=== PATIENT | female | born 1930 | race Hispanic/Latino ===

== ENCOUNTER 2017-12-31 15:09 | Emergency (ER) | payer OTHER ==
[2017-12-31] MEDS ORDERED: ACETAMINOPHEN-CODEINE 300/30MG TAB ONE (15:22)
== END 2017-12-31 16:32 | disposition home or self-care (01) ==
LOC: EDH 15:09
DX: S82.891A Other fracture of right lower leg, initial encounter for closed fracture (principal); E11.9 Type 2 diabetes mellitus without complications; E78.5 Hyperlipidemia, unspecified; I10 Essential (primary) hypertension; W18.39XA Other fall on same level, initial encounter; Y93.01 Activity, walking, marching and hiking; Y92.89 Other specified places as the place of occurrence of the external cause; Y99.8 Other external cause status
CPT/HCPCS: 29515; 73562; 73610

== ENCOUNTER 2018-01-15 11:30 | Observation (INO) | payer OTHER ==
[~2018-01-15] VITALS: Ht 152.4 cm; Wt 56.7 kg
[2018-01-15 15:57] LABS: BASOPHILS % (AUTO) 0.8 % (0.0-5.0); EOSINOPHILS % (AUTO) 1.8 % (0.0-8.0); HEMATOCRIT 32.2 % (36-48); LYMPHOCYTES % (AUTO) 16.2 % (21.0-51.0); MEAN CORPUSCULAR HEMOGLOBIN 29.7 pg (27.0-33.0); MEAN CORPUSCULAR HGB CONC 33.6 g/dL (32.0-36.0); MEAN CORPUSCULAR VOLUME 88.3 fL (79-99); MONOCYTES % (AUTO) 6.7 % (3.0-13.0); NEUTROPHILS % (AUTO) 74.5 % (40.0-77.0); PLATELET COUNT (AUTO) 404 K/uL (130-400); RED BLOOD CELL COUNT(AUTO) 3.65 MIL/uL (4.00-5.50); RED CELL DISTRIBUTION WIDTH 14.6 % (11.0-15.5)
[2018-01-15 16:02] VITALS: BP 109/58
[2018-01-15 16:04] LABS: CREATININE 1.8 mg/dL (0.5-1.5); POTASSIUM 5.4 mmol/L (3.5-5.1)
[2018-01-15] MEDS ORDERED: ACET1TAB12 PO (16:38)
[2018-01-15] MEDS ORDERED: GLIP2.5T2 PO (16:38)
[2018-01-15] MEDS ORDERED: METO50TA18 PO (16:38)
[2018-01-15] MEDS ORDERED: ASPI-555 PO (16:38)
[2018-01-15] MEDS ORDERED: AMLO5TAB2 PO (16:38)
[2018-01-15] MEDS ORDERED: LOSA1TAB54 PO (16:38)
[2018-01-15] MEDS ORDERED: TIMO.5OS OD (16:38)
[2018-01-16] VITALS (23 sets, daily range): BP systolic 94–119; BP diastolic 40–54
[2018-01-16] MEDS: CEFAZOLIN SODIUM 1 GM VIAL IVP SCH ×4 (06:00→23:31)
[2018-01-16] MEDS ORDERED: LACTATED RINGERS 1000ML 0 ML IV ONE (07:39)
[2018-01-16] MEDS ORDERED: SODIUM CHLORIDE 0.9% 1000ML 1,000 ML IV ONE (07:40)
[2018-01-16] MEDS ORDERED: GLYCOPYRROLATE 0.2 MG/ML 5 ML VIAL ONE (08:20)
[2018-01-16] MEDS ORDERED: FENTANYL CITRATE PF 50 MCG/1 ML 2ML VIAL ONE (08:20)
[2018-01-16] MEDS ORDERED: DEXAMETHASONE SOD PHOSPHATE 10MG/ML 1ML VIAL ONE (08:20)
[2018-01-16] MEDS ORDERED: PROPOFOL 10 MG/ML 20ML VIAL IV ONE (08:20)
[2018-01-16] MEDS ORDERED: LIDOCAINE PF 2% 5ML ABBOJECT ONE (08:20)
[2018-01-16] MEDS ORDERED: MIDAZOLAM HCL 1 MG/ML 2ML VIAL ONE (08:21)
[2018-01-16] MEDS ORDERED: CEFAZOLIN SODIUM 1 GM VIAL ONE ×2 (08:50→23:29)
[2018-01-16] MEDS ORDERED: HYDROCODONE/ACETAMINOPHEN 5/325 MG TAB PO PRN ×2 (09:15)
[2018-01-16] MEDS ORDERED: FERROUS FUMARATE 324 MG TABLET PO PRN (09:15)
[2018-01-16] MEDS ORDERED: KETOROLAC TROMETHAMINE 15MG/ML IV PRN (09:15)
[2018-01-16] MEDS ORDERED: DIPHENHYDRAMINE HCL 25 MG CAPSULE PO PRN (09:15)
[2018-01-16] MEDS: SODIUM CHLORIDE 0.9% 1000ML 1,000 ML IV SCH ×2 (11:06→19:48)
[2018-01-16] MEDS: PSYLLIUM SEED 1 EACH PACKET PO SCH (12:29)
[2018-01-16] MEDS: ACETAMINOPHEN-CODEINE 300/30MG TAB PO SCH ×3 (12:30→23:32)
[2018-01-16] MEDS ORDERED: CEFAZOLIN 2GM / 50 ML 50 ML IV SCH (14:15)
[2018-01-16] MEDS: WATER FOR INJECTION,STERILE 20 ML VIAL IJ SCH ×2 (17:21→22:15)
[2018-01-16] MEDS: ASPIRIN 325 MG TABLET PO SCH (19:48)
[2018-01-17] MEDS: SODIUM CHLORIDE 0.9% 1000ML 1,000 ML IV SCH (05:11)
[2018-01-17] MEDS: WATER FOR INJECTION,STERILE 20 ML VIAL IJ SCH ×2 (05:33→12:26)
[2018-01-17 05:48] VITALS: BP 135/60
[2018-01-17] MEDS: ACETAMINOPHEN-CODEINE 300/30MG TAB PO SCH ×3 (06:00→19:33)
[2018-01-17 08:02] VITALS: BP 126/58
[2018-01-17] MEDS ORDERED: GLIPIZIDE XL 2.5MG TAB PO SCH (09:00)
[2018-01-17] MEDS ORDERED: POLYETHYLENE GLYCOL 3350 17 GM POWD.PACK PO SCH (09:00)
[2018-01-17] MEDS ORDERED: METOPROLOL TARTRATE 50 MG TAB PO SCH (09:00)
[2018-01-17] MEDS ORDERED: TIMOLOL MALEATE 0.5% 5 ML BOTTLE OD SCH (09:00)
[2018-01-17] MEDS ORDERED: ASPIRIN 81 MG EC TAB PO SCH (09:00)
[2018-01-17] MEDS ORDERED: AMLODIPINE BESYLATE 5 MG TAB PO SCH (09:00)
[2018-01-17] MEDS ORDERED: LOSARTAN/HYDROCHLOROTHIAZIDE 50-12.5MG TABLET PO SCH (09:00)
[2018-01-17] MEDS ORDERED: FAMOTIDINE 20MG TAB 20 MG TAB PO SCH (09:00)
[2018-01-17] MEDS: ASPIRIN 325 MG TABLET PO SCH (09:37)
[2018-01-17 11:50] VITALS: BP 122/59
[2018-01-17] MEDS: PSYLLIUM SEED 1 EACH PACKET PO SCH (12:29)
[2018-01-17] MEDS ORDERED: TYL3 PO (13:18)
[2018-01-17 16:30] VITALS: BP 124/69
[2018-01-18] MEDS ORDERED: BISACODYL 5 MG TABLET.DR PO PRN (09:15)
[2018-01-19] MEDS ORDERED: BISACODYL 10 MG SUPP.RECT RC PRN (09:15)
== END 2018-01-17 21:05 ==
LOC: DAHIP 01-16 06:33 → 4AH 01-16 10:19 → EDSTATUS 01-16 11:30
PROVIDERS: ADMIT Orthopaedic Surgery; ATTEND Orthopaedic Surgery
DX: S82.841A Displaced bimalleolar fracture of right lower leg, initial encounter for closed fracture (principal); R29.6 Repeated falls; L98.9 Disorder of the skin and subcutaneous tissue, unspecified; W19.XXXA Unspecified fall, initial encounter; Y92.89 Other specified places as the place of occurrence of the external cause; Y93.89 Activity, other specified; Y99.8 Other external cause status
CPT/HCPCS: 27814; 36415; 76000; 80048; 82948 ×8; 85025; 93005; 96374; 96375; 96376; 97039 ×2; 97161; A4218 ×2; A4649; A4930 ×2; A6223; C1713 ×2; G0378 ×40; G8979; G8980; G8981; G8982; G8983; J0690 ×4; J1100; J1885; J2001; J2250; J2704; J3010; J3490; J7030 ×4; Q4051; J7120

== ENCOUNTER 2018-01-25 13:31 | Emergency (ER) | payer OTHER ==
[~2018-01-25 13:31] MED LIST: ACET1TAB12 PO; AMLO5TAB2 PO; ASPI-555 PO; GLIP2.5T2 PO; LOSA1TAB54 PO; METO50TA18 PO; TIMO.5OS OD; TYL3 PO
[2018-01-25 13:57] LABS: BASOPHILS % (AUTO) 0.9 % (0.0-5.0); EOSINOPHILS % (AUTO) 1.5 % (0.0-8.0); LYMPHOCYTES % (AUTO) 11.7 % (21.0-51.0); MEAN CORPUSCULAR HEMOGLOBIN 30.1 pg (27.0-33.0); MEAN CORPUSCULAR HGB CONC 34.4 g/dL (32.0-36.0); MEAN CORPUSCULAR VOLUME 87.4 fL (79-99); MONOCYTES % (AUTO) 5.5 % (3.0-13.0); NEUTROPHILS % (AUTO) 80.4 % (40.0-77.0); PLATELET COUNT (AUTO) 301 K/uL (130-400); RED BLOOD CELL COUNT(AUTO) 3.65 MIL/uL (4.00-5.50); RED CELL DISTRIBUTION WIDTH 14.9 % (11.0-15.5); WHITE BLOOD COUNT (AUTO) 7.9 K/uL (4.8-10.8)
[2018-01-25 14:15] LABS: CREATININE 1.2 mg/dL (0.5-1.5); POTASSIUM 4.4 mmol/L (3.5-5.1)
[2018-01-25 14:23] LABS: B-TYPE NATRIURETIC PEPTIDE 30 pg/mL (0-100)
[2018-01-25 14:28] LABS: APPEARANCE,URINE Clear (CLEAR); BILIRUBIN,URINE Negative (NEGATIVE); COLOR,URINE Yellow (YELLOW); GLUCOSE, URINE (UA) Negative (NEGATIVE); KETONES,URINE Negative (NEGATIVE); LEUKOCYTE ESTERASE ,URINE Trace (NEGATIVE); NITRATE,URINE Negative (NEGATIVE); OCCULT BLOOD,URINE Negative (NEGATIVE); PH,URINE 5.5 (5.0-8.0); PROTEIN,URINE Negative (NEGATIVE)
[2018-01-25 14:29] LABS: ALBUMIN 3.2 g/dL (3.5-5.0); BILIRUBIN,TOTAL 0.4 mg/dL (0.2-1.0); CREATINE KINASE MB 0.7 ng/mL (0.5-3.6); TOTAL PROTEIN, SERUM 7.2 g/dL (6.0-8.3)
[2018-01-25 14:41] LABS: BACTERIA,URINE Few /HPF (None Seen); RBC,URINE None Seen /HPF (0-1); WBC,URINE 0-1 /HPF (0-1)
[2018-01-25] MEDS ORDERED: ASPIRIN 325 MG TABLET ONE (16:04)
== END 2018-01-25 22:34 | disposition short-term general hospital (02) ==
LOC: EDH 13:31
DX: G45.8 Other transient cerebral ischemic attacks and related syndromes (principal); E11.9 Type 2 diabetes mellitus without complications; E78.5 Hyperlipidemia, unspecified; I10 Essential (primary) hypertension
CPT/HCPCS: 36415; 70450; 71045; 80053; 81001; 82550; 82553; 82948; 83880; 84484; 85025; 93005